=== PATIENT | male | born 1945 | race Caucasian/White ===

== ENCOUNTER 2020-08-24 14:31 | Outpatient (CLI) | payer MEDICARE ==
[2020-08-24] VITALS (8 sets, daily range): BP systolic 86–110; BP diastolic 55–63; PULSE 58–92; TEMP 98.1–98.4
[~2020-08-24] VITALS: Ht 170.2 cm; Wt 88.6 kg
--- NOTE | 2020-08-24 15:15 | NUR ---
Infusion complete.Will monitor for one hour.
[2020-08-24] MEDS ORDERED: LIPITOR 40MG TA40 MG PO (15:25)
[2020-08-24] MEDS ORDERED: SYNTHROID0.05 MG/TA PO (15:26)
--- NOTE | 2020-08-24 16:37 | NUR ---
Pt escorted out via ambulatory by this nurse.
== END 2020-08-24 16:40 | disposition home or self-care (01) ==
LOC: EUO 14:31
DX: Z23 Encounter for immunization (principal); U07.1 COVID-19